=== PATIENT | female | born 1985 | race Caucasian/White ===

== ENCOUNTER 2019-01-11 17:58 | Emergency (ER) | payer BC, OTHER ==
[~2019-01-11] VITALS: Ht 160 cm; Wt 154.2 kg
[2019-01-11 18:05] VITALS: BP_SYST 149
[2019-01-11 20:30] VITALS: BP_SYST 137
== END 2019-01-11 20:30 | disposition home or self-care (01) ==
LOC: SED 17:58
DX: J20.9 Acute bronchitis, unspecified (principal); R03.0 Elevated blood-pressure reading, without diagnosis of hypertension; Z88.0 Allergy status to penicillin
CPT/HCPCS: 71046-TC; 81025; 99283